=== PATIENT | female | born 1990 | race Caucasian/White ===

== ENCOUNTER → 2020-10-27 16:57 | Outpatient (CLI) | payer OTHER, SELFPAY ==
[2020-10-27 19:42] LABS: Coronavirus 19 IgG Antibody Negative (Negative); Coronavirus 19 IgM Antibody Negative (Negative)
[2020-10-30 06:28] LABS: Covid-19 Nasal PCR Sendout Lex NOT DETECTED
== END ==
PROVIDERS: PCP Nurse Practitioner Family; Visit Provider Nurse Practitioner Family
DX: Z03.818 Encounter for observation for suspected exposure to other biological agents ruled out (principal)
CPT/HCPCS: 36415; 86328; U0004

== ENCOUNTER → 2021-03-05 10:34 | Outpatient (CLI) | payer OTHER, SELFPAY ==
--- NOTE | 2021-03-05 10:40 | FL_ITS ---
PROCEDURE: FL UPPER GI W AIR CLINICAL INDICATION: MORBID OBESITY,DYSPEPSIA COMPARISON: No exams were available for comparison FINDINGS: Esophagus and stomach have an unremarkable appearance without evidence of mass or ulceration. No hiatal hernia. The duodenal bulb and descending duodenum demonstrated mild mucosal thickening which could be due to lymphoid hyperplasia or duodenitis. No ulcer is evident. There is a small diverticulum projecting off of the medial portion of the descending duodenum.. IMPRESSION: Possible duodenitis versus lymphoid hyperplasia. No ulcer identified. Small duodenal diverticulum. Otherwise negative Dictated by: Franck Issa MD 03/05/2021 14:52 Franck Issa MD in [facility] 03/05/2021 14:52
--- NOTE | 2021-03-05 10:41 | XR_ITS ---
PROCEDURE: XR CHEST 2V CLINICAL HISTORY: DYSPEPSIA, ESSENTIAL HYPERTENSION W/ GOAL BP <130V80 COMPARISON: No exams were available for comparison FINDINGS: The cardiomediastinal silhouette and pulmonary vascularity are within normal limits. Increased markings are present in the right lung base medially and may be related overlying vascular markings. Patchy infiltrate could have a similar appearance. Please correlate with clinical findings. The remaining lungs are clear. No acute bony abnormalities. IMPRESSION: Increased markings right lung base medially which may be due to summation from overlying vascular markings versus patchy infiltrate. Dictated by: Franck Issa MD 03/05/2021 14:27 Franck Issa MD in [facility] 03/05/2021 14:27
[2021-03-05 11:43] LABS: Basophils # 0.1 K/mm3 (0-0.2); Basophils % 0.6 % (0.1-2.0); Eosinophils # 0.2 K/mm3 (0.0-0.4); Eosinophils % 1.5 % (0.1-12.0); Hematocrit 43.6 % (37.0-47.0); Hemoglobin 14.8 g/dL (12.2-16.2); Lymphocytes # 3.1 K/mm3 (0.7-4.5); Mean Corpuscular HGB Conc 33.9 g/dL (31.8-35.4); Mean Corpuscular Hemoglobin 27.5 pg (27.0-31.2); Mean Corpuscular Volume 80.9 fl (81-99); Mean Platelet Volume 11.7 fl (7.4-10.4); Monocytes # 0.5 K/mm3 (0.1-1.0); Monocytes % 4.5 % (1.7-9.3); Neutrophils # 7.9 K/mm3 (1.8-7.8); Neutrophils % 67.5 % (37.0-80.0); Platelet Count 108 K/mm3 (142-424); Red Blood Count 5.39 M/mm3 (4.20-5.40); Red Cell Distribution Width 14.1 % (11.5-17.5); White Blood Count 11.8 K/mm3 (4.8-10.8)
[2021-03-05 11:53] LABS: Hemoglobin A1C 12.2 % (4.0-6.0)
[2021-03-05 12:03] LABS: Alanine Aminotransferase 27 U/L (12-78); Albumin Level 4.1 g/dl (3.5-5.0); Albumin/Globulin Ratio 1.3 (1.1-1.8); Alkaline Phosphatase 104 U/L (38-126); Anion Gap 11.2 mEq/L (5-15); Aspartate Amino Transferase 33 U/L (14-36); Bilirubin,Total 0.4 mg/dl (0.2-1.3); Blood Urea Nitrogen 8 mg/dl (7-17); Calcium 9.6 mg/dl (8.4-10.2); Carbon Dioxide 25 mmol/L (22.0-30.0); Chloride 105 mmol/L (98-107); Chol/HDL Ratio 4.9 (1-3.5); Cholesterol 142 mg/dl (140-200); Estimated Glomerular Filt Rate 185 ml/min (>60); GFR (African American) 224 ML/MIN (>60); Globulin 3.2 g/dL (1.3-3.2); Glucose 261 mg/dl (74-100); HDL Cholesterol 29 mg/dl (40-60); Magnesium 1.6 mg/dl (1.6-2.3); Phosphorous 4.2 mg/dl (2.5-4.5); Potassium 4.2 mmoL/L (3.5-5.1); Sodium 137 mmol/L (136-145); Total Protein,Serum 7.3 g/dl (6.3-8.2); Triglycerides 198 mg/dl (30-150); VLDL Cholesterol 40 mg/dL (0-40)
[2021-03-05 12:14] LABS: Direct LDL Cholesterol 74.42 mg/dL (100-129)
[2021-03-05 12:18] LABS: Intact Parathyroid Hormone 19.3 pg/mL (7.5-53.5)
[2021-03-05 12:22] LABS: 25-OH Vitamin D, Total 19.3 ng/mL (30-100)
[2021-03-05 12:36] LABS: Thyroid Stimulating Hormone 1.24 uIU/mL (0.465-4.68)
[2021-03-05 13:20] LABS: Iron 66 ug/dL (37-170)
[2021-03-05 14:31] LABS: Ferritin 171 ng/ml (6.24-137)
[2021-03-06 12:56] LABS: Prealbumin 22 mg/dL (14-35)
[2021-03-11 11:33] LABS: Methylmalonic Acid 95 nmol/L (0-378)
[2021-03-12 17:19] LABS: Vitamin E Alpha Tocopherol 7.9 mg/L (5.9-19.4)
[2021-03-12 17:23] LABS: Vitamin A 42.3 ug/dL (18.9-57.3); Vitamin E Gamma Tocopherol 3.7 mg/L (0.7-4.9)
[2021-03-13 10:12] LABS: Vitamin B1 168.4 nmol/L (66.5-200.0)
== END ==
PROVIDERS: PCP Nurse Practitioner Family; Visit Provider Physician Assistant
DX: R10.13 Epigastric pain (principal); I10 Essential (primary) hypertension; E66.01 Morbid (severe) obesity due to excess calories; E11.9 Type 2 diabetes mellitus without complications; Z79.84 Long term (current) use of oral hypoglycemic drugs
CPT/HCPCS: 36415; 71046; 74246; 80053; 80061; 82131; 82306; 82728; 82746; 83036; 83540; 83735; 83970; 84100; 84134; 84425; 84443; 84446; 84590; 85025

== ENCOUNTER → 2021-04-02 06:26 | Outpatient (CLI) | payer OTHER, SELFPAY ==
--- NOTE | 2021-04-02 06:28 | NM_ITS ---
APPROVED REPORT Exam: Nuclear Stress Test Indication: sob..pre-op Patient Location: Outpatient Stress Tech: Dianne Jones MA Tech:Antonia Smith DAVINALisa RT(R)(N) Ht: 5 ft 2 in Wt: 329 lbs Bra Size: 3x HR: 83 bpm BP: 130/71 mmHg BSA: 2.36 m2 BMI: 60.1 History: sob..pre-op Procedure: Patient received a 0.4 mg of intravenous Lexiscan, resting heart rate 83 bpm, resting blood pressure 130/71 mmHg, with Lexiscan maximum heart rate achived was 102 bpm which is Less than 85 % of the maximum predicted heart rate and blood pressure was 156/82 mmHg. With Lexiscan, patient denied any complaint of chest pain. Electrocardiogram Resting electrocardiogram showed sinus rhythm, with Lexiscan there is less than 1.[address] segment depression noted from the baseline EKG. The EKG portion of the Lexiscan is nondiagnostic. Cardiac Stress and Resting SPECT Images: Cardiac Stress and Resting SPECT images were obtained using technetium 99m Myoview 29.9 mCi stress and 9.52 mCi at rest. Gated SPECT for analysis of segmental wall motion and calculation of the ejection fraction also done, prone images were also obtained. Cardiac stress and resting SPECT images show mild fixed defect in the anterior wall with normal contractility gated SPECT is likely secondary to soft tissue attenuation, no reversible ischemia seen, however there is mild transient ischemic dilatation of the left ventricle seen, raising the concerns for presence of balanced ischemia. Computer derived ejection fraction is 61% with no regional wall motion abnormality, right ventricle is normal size and contractility. Conclusion: 1. The EKG portion of the Lexiscan is nondiagnostic. 2. No scintigraphic evidence of reversible ischemia seen, computer derived ejection fraction is 61% with no regional wall motion abnormality, right ventricle is normal size and contractility however there is marked transient ischemic dilatation of the left ventricle seen, raising the concerns for presence of balanced ischemia, other causes for transient ischemic dilatation includes increased left ventricular end-diastolic pressure, hypertension and hypertensive heart disease, microvascular disease and diabetes. Clinical correlation is recommended. 3. Abnormal Lexiscan Myoview study. Electronically signed by : Kayode Arriaza, 04/02/2021 11:05:28
--- NOTE | 2021-04-02 06:28 | CA_ITS ---
APPROVED REPORT EXAM: Comprehensive 2D, Doppler, and color-flow Echocardiogram Construction Equipment Mechanic: Carrol Alvarez, NIKKI, RVS Ht: 5 ft 2 in Wt: 329lbs BSA: 2.36 BP: 181/100 mmHg Indications: SOB, Obese, htn, sinus tachycardia, Pre-op Echo Enhancing Agent Indication: Endocardial border delineation Agent(s) / Amount(s) Used: Definity 2 cc Comments: Extreme body habitus 2D Dimensions LVDs 3.46 cm LA Volume 46.50 mL LVOT 1.94 cm (M/F) 1.5-2.5 LA Volume Index 19.70 mL/m2 (M/F) 16-34 M-Mode Dimensions LA Diam 3.79 cm (1.9-4.0) Ao Diam 2.80 cm (2.0-3.7) EPSs 1.08 cm TAPSE 2.20 (<1.7) LV Diastology E Decel Time 193.00 (160-240 msec) E/A Ratio 1.95 MED E' 11.10 (< 7 cm/sec) MED A' 8.20 cm/s E'/MED E' Ratio 10.13 (>14) LAT E' 10.20 (<10 cm/sec) LAT A' 8.70 cm/s E/LAT E' Ratio 11.02 (>14) Aortic Valve LVOT Max 105.00 (70-110 cm/s) LVOT VTI 20.13 cm AoV Peak Wilner. 165.00 (50-130 cm/s) AO Peak GR. 10.80 mmHg AO Mean GR. 5.40 (<5 mmHg) AO VTI 29.42 (18-25 cm) NILAM (VTI) 2.02 (2.5-4.5 cm2) Mitral Valve MV A Velocity 58.00 (40-130 cm/s) E/A Ratio 1.95 MV Decel. Time 193.00 (160-240 ms) Pulmonary Valve PV Peak Velocity 105.00 (50-150 cm/s) Tricuspid Valve TR P. Velocity 141.00 cm/s RAP Estimate 10.00 mmHg RVSP 17.90 mmHg Left Ventricle Technically difficult study, Definity contrast was utilized to delineate the endocardial surfaces. Left atrium is normal size, left ventricle is normal size, visually estimated ejection fraction 55% with no regional wall motion abnormality, there is no left ventricular hypertrophy seen, diastolic parameters are within normal range. Right Ventricle Right atrium and right ventricle are normal size and contractility. Aortic Valve Aortic valve is grossly normal, there is no aortic stenosis or aortic insufficiency. Mitral Valve Mitral valve grossly normal, there is trace mitral regurgitation. Tricuspid Valve Tricuspid grossly normal, there is trace tricuspid regurgitation, tricuspid regurgitation jet velocity is inadequate for calculation of the right ventricular systolic pressure. Pulmonic Valve Pulmonic valve is poorly visualized. Great Vessels Aortic root is normal size. Pericardium No significant pericardial effusion noted. Conclusion 1. Technically difficult study, Definity contrast was utilized to delineate the endocardial surfaces. 2. Normal left ventricular size, visually estimated ejection fraction 55% with no regional wall motion abnormality, diastolic parameters are within normal range. 3. Trace mitral and tricuspid regurgitation. 4. No significant pericardial effusion noted. Electronically signed by : Kayode Arriaza, 04/02/2021 16:07:39
--- NOTE | 2021-04-02 08:00 | CA_ITS ---
APPROVED REPORT Exam: Pharmacologic Technologist: Dianne Jones, Ht: 5 ft 2 in Wt: 329 lbs BSA: 2.36 m2 HR: 83 bpm BP: 130/71 mmHg Rhythm: NSR Medical History Medical History: HTN, Hyperlipidemia, Diabetic, Medications: Metformin,,,,, Losartan,,,,, HCTZ,,,,, Glipizide,,,,, Cetrizine,,,,, BisOPROL,,,,, MeDroxyprogesterone,,,,, Simvasatin,,,,, INSULIN GLARGINE,,,,, Allergies: No known drug allergies Cardiac Risk Factors: HTN, Hyperlipidemia, Diabetes,, FHX of CAD Stress Test Details Test: LEXISCAN HR Resting HR: 90 bpm Max Heart Rate (APMHR): 188.661135 bpm Max HR Achieved: 119 bpm Target HR (85% APMHR): 159.958113 bpm % of APMHR: 63.30 Recovery HR: 98 bpm BP Resting BP: 130/71 mmHg Max BP: 156/82 mmHg Recovery BP: 150.0/77.0 mmHg ECG Resting ECG: NSR Clinical Exercise duration: 04:01 min Highest Stage Achieved: Stress ECG Conclusion PT HAD MILD SOA AND NAUSEA. NO CP. NO ARRHYTMIAS, NO SIGNIFICANT ST CHANGES. UNREMARKABLE LEXISCAN STRESS. MYOVIEW IMAGES REPORTED SEPERATELY. Test Summary REST 03:24 . . 90 . 130/ 71 . . Stage 1 . . . . . . . Cardiolite injected Stage 1 01:00 . . 115 . . . . Stage 2 01:00 . . 113 . . . . Stage 3 01:00 . . 109 . . . . Stage 4 01:00 . . 104 . . . . Stage 4 01:01 . . 103 . . . Stop exercise at 04:01 RECOVERY 01:00 . . 99 . . . . RECOVERY 02:00 . . 102 . 156/ 82 . . RECOVERY 03:00 . . 97 . 156/ 82 . . RECOVERY 04:00 . . 98 . 150/ 77 . . RECOVERY 04:22 . . 105 . 150/ 77 . . Electronically signed by : Kayode Arriaza, 04/02/2021 10:55:28
[2021-04-02 11:20] LABS: Chloride 100 mmol/L (98-107); Sodium 139 mmol/L (136-145)
[2021-04-02 11:23] LABS: Blood Urea Nitrogen 12 mg/dl (7-17); Carbon Dioxide 27 mmol/L (22.0-30.0); Estimated Glomerular Filt Rate 143 ml/min (>60); GFR (African American) 173 ML/MIN (>60)
[2021-04-02 11:24] LABS: Glucose 261 mg/dl (74-100)
[2021-04-02 11:33] LABS: NT Pro Brain Natriuretic Pep. 41.5 pg/mL (0-125)
== END ==
PROVIDERS: PCP Nurse Practitioner Family; Visit Provider Internal Medicine Cardiovascular Disease
DX: Z01.810 Encounter for preprocedural cardiovascular examination (principal); R00.0 Tachycardia, unspecified; R94.39 Abnormal result of other cardiovascular function study; I10 Essential (primary) hypertension; E11.69 Type 2 diabetes mellitus with other specified complication
CPT/HCPCS: 36415; 78452; 80048; 83880; 93017; 93306; A9502; J2785; Q9957

== ENCOUNTER → 2021-04-16 07:25 | Outpatient (CLI) | payer OTHER, SELFPAY ==
--- NOTE | 2021-04-16 07:30 | CT_ITS ---
PROCEDURE: CT HEART W CALCIUM SCORE CLINICAL HISTORY: SCREENING COMPARISON: CR XR CHEST 2V from 03/05/2021 TECHNIQUE: Axial images obtained with sagittal and coronal reformats. All CT scans at the facility use one or more dose reduction, viz: automated exposure control, ma/kV adjustment per patient size (including targeted exams where dose is matched to indication, i.e. head), or iterative reconstruction technique. FINDINGS: The coronary artery calcium score is 0. No identifiable calcific atherosclerotic plaque with very low cardiovascular disease risk. There is a 5 mm nonspecific noncalcified nodule in the region the right minor fissure. Minimal atelectatic or fibrotic changes present in the lingula. IMPRESSION: No identifiable calcific atherosclerotic plaque with very low cardiovascular disease risk Dictated by: Franck Issa MD 04/16/2021 09:54 Franck Issa MD in [facility] 04/16/2021 09:54
== END ==
PROVIDERS: Physician Assistant; PCP Nurse Practitioner Family; Visit Provider Internal Medicine Cardiovascular Disease
DX: Z13.6 Encounter for screening for cardiovascular disorders (principal); K21.9 Gastro-esophageal reflux disease without esophagitis
CPT/HCPCS: 36415; 75571; 86677

== ENCOUNTER → 2021-04-16 12:00 | Outpatient (CLI) | payer SELFPAY | PROVIDERS: PCP Nurse Practitioner Family; Visit Provider Internal Medicine Cardiovascular Disease | DX: Z13.6 Encounter for screening for cardiovascular disorders (principal) | CPT/HCPCS: 75571 ==

== ENCOUNTER → 2021-10-01 07:33 | Outpatient (CLI) | payer OTHER, SELFPAY ==
[2021-10-01 09:16] LABS: Alanine Aminotransferase 13 U/L (12-78); Albumin Level 4.4 g/dl (3.5-5.0); Albumin/Globulin Ratio 1.5 (1.1-1.8); Alkaline Phosphatase 121 U/L (38-126); Anion Gap 14.2 mEq/L (5-15); Aspartate Amino Transferase 21 U/L (14-36); Bilirubin,Total 0.4 mg/dl (0.2-1.3); Blood Urea Nitrogen 9 mg/dl (7-17); Calcium 9.6 mg/dl (8.4-10.2); Carbon Dioxide 28 mmol/L (22.0-30.0); Chloride 102 mmol/L (98-107); Chol/HDL Ratio 4.8 (1-3.5); Cholesterol 191 mg/dl (140-200); Estimated Glomerular Filt Rate 116 ml/min (>60); GFR (African American) 140 ML/MIN (>60); Globulin 2.9 g/dL (1.3-3.2); Glucose 123 mg/dl (74-100); HDL Cholesterol 40 mg/dl (40-60); Potassium 4.2 mmoL/L (3.5-5.1); Sodium 140 mmol/L (136-145); Total Protein,Serum 7.3 g/dl (6.3-8.2); Triglycerides 160 mg/dl (30-150); VLDL Cholesterol 32 mg/dL (0-40)
[2021-10-01 09:22] LABS: Basophils # 0.1 K/mm3 (0-0.2); Basophils % 0.8 % (0.1-2.0); Eosinophils # 0.1 K/mm3 (0.0-0.4); Eosinophils % 0.6 % (0.1-12.0); Hematocrit 42.8 % (37.0-47.0); Hemoglobin 14.1 g/dL (12.2-16.2); Lymphocytes # 2.1 K/mm3 (0.7-4.5); Lymphocytes % 19.6 % (10-50); Mean Corpuscular Hemoglobin 27.8 pg (27.0-31.2); Mean Corpuscular Volume 84.3 fl (81-99); Mean Platelet Volume 15.2 fl (7.4-10.4); Monocytes # 0.5 K/mm3 (0.1-1.0); Monocytes % 4.9 % (1.7-9.3); Neutrophils # 7.8 K/mm3 (1.8-7.8); Neutrophils % 74.1 % (37.0-80.0); Platelet Count 90 K/mm3 (142-424); Red Blood Count 5.08 M/mm3 (4.20-5.40); Red Cell Distribution Width 13.5 % (11.5-17.5); White Blood Count 10.6 K/mm3 (4.8-10.8)
[2021-10-01 09:27] LABS: Direct LDL Cholesterol 119.78 mg/dL (100-129)
[2021-10-01 09:28] LABS: Intact Parathyroid Hormone 27.7 pg/mL (7.5-53.5)
[2021-10-01 09:34] LABS: 25-OH Vitamin D, Total 41.8 ng/mL (30-100)
[2021-10-01 09:47] LABS: Thyroid Stimulating Hormone 1.01 uIU/mL (0.465-4.68)
[2021-10-01 10:37] LABS: Folate 5.57 ng/mL
[2021-10-01 11:16] LABS: Iron 67 ug/dL (37-170)
[2021-10-01 11:52] LABS: Ferritin 167 ng/ml (6.24-137)
[2021-10-02 12:31] LABS: Prealbumin 16 mg/dL (14-35)
[2021-10-06 18:35] LABS: Methylmalonic Acid 214 nmol/L (0-378)
[2021-10-07 01:07] LABS: Vitamin A 39.1 ug/dL (18.9-57.3); Vitamin E Alpha Tocopherol 9.6 mg/L (5.9-19.4); Vitamin E Gamma Tocopherol 2.8 mg/L (0.7-4.9)
[2021-10-07 11:42] LABS: Vitamin B1 123.5 nmol/L (66.5-200.0)
== END ==
PROVIDERS: Nurse Practitioner Family; Visit Provider Physician Assistant
DX: E11.65 Type 2 diabetes mellitus with hyperglycemia (principal); I10 Essential (primary) hypertension; E78.2 Mixed hyperlipidemia; Z79.84 Long term (current) use of oral hypoglycemic drugs
CPT/HCPCS: 36415; 80053; 80061; 82043; 82131; 82306; 82728; 82746; 83036; 83540; 83970; 84134; 84425; 84443; 84446; 84590; 85025

== ENCOUNTER 2023-11-30 16:24 | Outpatient (CLI) | payer BC, SELFPAY ==
[2023-11-30 16:23] LABS: Basophils # 0.1 K/mm3 (0-0.2); Basophils % 0.8 % (0.1-2.0); Eosinophils # 0.2 K/mm3 (0.0-0.4); Eosinophils % 1.4 % (0.1-12.0); Hematocrit 40.8 % (37.0-47.0); Hemoglobin 13.9 g/dL (12.2-16.2); Lymphocytes # 2.7 K/mm3 (0.7-4.5); Lymphocytes % 25.4 % (10-50); Mean Corpuscular Hemoglobin 27.3 pg (27.0-31.2); Mean Corpuscular Volume 80.4 fl (81-99); Mean Platelet Volume 15.4 fl (7.4-10.4); Monocytes # 0.6 K/mm3 (0.1-1.0); Monocytes % 5.8 % (1.7-9.3); Neutrophils # 7.2 K/mm3 (1.8-7.8); Neutrophils % 66.7 % (37.0-80.0); Platelet Count 94 K/mm3 (142-424); Red Blood Count 5.07 M/mm3 (4.20-5.40); Red Cell Distribution Width 14.5 % (11.5-17.5); White Blood Count 10.7 K/mm3 (4.8-10.8)
[2023-11-30 16:37] LABS: Alanine Aminotransferase 16 U/L (12-78); Albumin Level 4.2 g/dl (3.5-5.0); Albumin/Globulin Ratio 1.4 (1.1-1.8); Alkaline Phosphatase 99 U/L (38-126); Anion Gap 13.2 mEq/L (5-15); Aspartate Amino Transferase 23 U/L (14-36); Bilirubin,Total 0.4 mg/dl (0.2-1.3); Blood Urea Nitrogen 13 mg/dl (7-17); Calcium 8.4 mg/dl (8.4-10.2); Carbon Dioxide 26 mmol/L (22.0-30.0); Chloride 105 mmol/L (98-107); Estimated Glomerular Filt Rate 114 ml/min (>60); GFR (African American) 138 ML/MIN (>60); Globulin 2.9 g/dL (1.3-3.2); Glucose 88 mg/dl (74-100); Potassium 4.2 mmoL/L (3.5-5.1); Sodium 140 mmol/L (136-145); Total Protein,Serum 7.1 g/dl (6.3-8.2)
[2023-11-30 17:03] LABS: Cholesterol 163 mg/dl (140-200); Triglycerides 110 mg/dl (30-150); VLDL Cholesterol 22 mg/dL (0-40)
[2023-11-30 17:04] LABS: Chol/HDL Ratio 4.2 (1-3.5); HDL Cholesterol 39 mg/dl (40-60)
[2023-11-30 17:14] LABS: Direct LDL Cholesterol 94.04 mg/dL (100-129)
[2023-11-30 17:26] LABS: Hemoglobin A1C 5.6 % (4.0-6.0)
[2023-11-30 17:36] LABS: Thyroid Stimulating Hormone 0.91 uIU/mL (0.465-4.68)
== END 2023-11-30 23:59 ==
LOC: LAB.DROPOF 16:25
PROVIDERS: PCP Family Medicine; Visit Provider Family Medicine
DX: E11.9 Type 2 diabetes mellitus without complications (principal); I10 Essential (primary) hypertension; R53.83 Other fatigue
CPT/HCPCS: 80053; 80061; 83036; 84443; 85025